=== PATIENT | male | born 1930 | race Caucasian/White ===

== ENCOUNTER 2016-05-19 06:53 | Emergency (ER) | payer MEDICARE, OTHER ==
[~2016-05-19] VITALS: Ht 175.3 cm; Wt 72.3 kg
[2016-05-19 06:54] VITALS: BP 124/50; PULSE 53; RESP 11; O2SAT 97
--- NOTE | 2016-05-19 06:56 | ED.REPORT ---
HPI-Stroke / CVA May 19, 2016 ED Provider: Dr Stallings Mr. Ravindra Cavanaugh is an 85-year-old gentleman with past medical history significant for Alzheimer's, Parkinson's, diabetes, and hypertension currently residing at [facility] since November last year who presents to the [facility] emergency department by EMS due to reports of one day history of malaise , confusion, and decreased level of consciousness. He is accompanied by his Lilian reports that he is normally active does not require ambulatory assistance is independent with food, urination and bowel movements. She also reports that he has had decreased verbal abilities for the last 7 years to Alzheimer's and Parkinson's. Lilian denies cough, vomiting, complaints of pain or diarrhea. Patient is unable to provide answers for questions. Nursing Notes Stated Complaint: RIGHT SIDE WEAKNESS Chief Complaint: Neuro Symptoms/ Deficits Nursing Notes Reviewed: Yes Allergies: Coded Allergies: No Known Allergies (Verified , 05/19/16) Uncoded Allergies: No Known Allergies (Allergy, Mild, 10/12/04) Scheduled Alfuzosin ER (Alfuzosin ER) 10 Mg Tab.er.24h 10 MG PO DAILY (Reported) Aspirin (Aspirin) 81 Mg Tablet 81 MG PO DAILY (Reported) Atenolol (Atenolol) 25 Mg Tablet 12.5 MG PO DAILY (Reported) Atorvastatin (Lipitor) 40 Mg Tablet 40 MG PO DAILY (Reported) Atropine 1% Ophthalmic Drops (Atropine 1% Ophthalmic Drops) 1 % Drops 1 DROP AFFECT_EYE QID (Reported) Donepezil (Donepezil) 10 Mg Tablet 10 MG PO HS (Reported) Insulin Glargine (Lantus U100 Insulin Vial) 100 Unit/Ml Vial 20 UNIT SUBQ QAM ( Reported) Memantine HCl (Memantine HCl) 10 Mg Tablet 10 MG PO DAILY (Reported) Scheduled PRN Sennosides (Senna) 8.6 Mg Tablet 8.6 MG PO BID PRN PRN For Constipation ( Reported) General Time Seen by Provider: 07:23 Transferred From: correction Chief Complaint Weakness, Confusion, Mental status change Right-sided (?) Time last known well Evening of 05/17/16, Roughly a day and a half ago on Thursday. Sudden in Onset?: Yes Progression Since Onset: Rapidly improving Review of Systems A comprehensive review of systems was conducted with the patient and found to be negative except as above in the History of Present Illness. Physical Exam General: Unable to assess due to decreased level on consciousness. HEENT: Normocephalic, atraumatic. External ears without defect. Pupils equal, round, and reactive to light and accommodation. Anicteric sclerae, moist conjunctivae, and no lid lag. Oropharynx free of erythema and cobble stoning with moist mucosa. Did not open eyes to commands her request. Would open eyes for painful stimuli. Neck: Supple with full range of motion. No jugular venous distension. No bruits. No lymphadenopathy or thyromegaly. Cardiovascular: Bradycardic rate and rhythm with no murmurs, rubs, or gallops appreciated Pulmonary: Clear to auscultation bilaterally with no crackles, wheezes, or rhonchi. Normal respiratory effort with no use of accessory muscles. Abdomen: Bowel tones present. Soft, nontender, nondistended. No hepatosplenomegaly or masses appreciated. Extremities: No clubbing, cyanosis, edema, or lymphadenopathy appreciated. Skin: Normal temperature, turgor, and texture; no rash, ulcers, or subcutaneous nodules appreciated. Neurological: Unable to assess due to decreased level on consciousness, however right side Parkinsonian stiffness of right upper extremity and tremor present but does not squeeze to commands. Does move intermittently to painful stimuli of upper and lower right side. Left upper extremity patient does squeeze to commands. Psychiatric: Unable to assess due to decreased level on consciousness. Initial Vital Signs Vital Signs (First) Date Time Temp Pulse Resp B/P Pulse Ox O2 Delivery O2 Flow Rate FiO2 05/19/16 06:54 37.5 53 11 124/50 97 Room Air Interpretation & Diagnostics Lab Results Interpretation Result Diagram: 05/19/16 0712 05/19/16 0712 Test 05/19/16 07:12 05/19/16 08:08 White Blood Count 8.1th/mm3 (3.8-10.1) Red Blood Count 3.78mil/mm3 (4.40-5.80) Hemoglobin 12.5g/dL (13.8-17.2) Hematocrit 37.1% (41.0-50.0) Mean Corpuscular Volume 98.1fL (81-100) Mean Corpuscular Hemoglobin 33.1pg (27.0-35.0) Mean Corpuscular Hemoglobin Concent 33.7% (32.0-37.0) Red Cell Distribution Width 12.6% (12.3-15.4) Platelet Count 183bil/L (150-400) Neutrophils (%) (Auto) 80.7% (40-74) Lymphocytes (%) (Auto) 11.6% (14-46) Monocytes (%) (Auto) 6.3% (4-12) Eosinophils (%) (Auto) 1.0% (0-5) Basophils (%) (Auto) 0.2% (0-3) Sodium Level 140mEq/L (134-144) Potassium Level 4.0mEq/L (3.5-5.2) Chloride Level 101mEq/L (97-108) Carbon Dioxide Level 26mmol/L (18-29) Blood Urea Nitrogen 25mg/dL (8-27) Creatinine 0.85mg/dL (0.76-1.27) Estimat Glomerular Filtration Rate 91mL/min (>59) Glucose Level 203mg/dL (60-99) Calcium Level 8.5mg/dL (8.5-10.1) Total Bilirubin 0.6mg/dL (0.0-1.2) Aspartate Amino Transf (AST/SGOT) 15U/L (0-50) Alanine Aminotransferase (ALT/SGPT) 19U/L (0-44) Alkaline Phosphatase 56U/L (25-160) Troponin T 0.010ug/L (0.0-0.011) Total Protein 5.4g/dL (6.4-8.4) Albumin 3.3g/dL (3.4-5.0) Hold Baron Top Tube Received (Received) Urine Color Yellow (YELLOW) Urine Appearance Hazy (CLEAR,HAZY) Urine pH 7.5 (5.0-8.0) Urine Specific [place] 1.010 (1.003-1.035) Urine Protein Negativemg/dL (NEG,TRACE) Urine Glucose (UA) Negativemg/dL (NEGATIVE) Urine Ketones Negativemg/dL (NEGATIVE) Urine Occult Blood Negative (NEGATIVE) Urine Nitrite Negative (NEGATIVE) Urine Bilirubin Negative (NEGATIVE) Urine Urobilinogen Normalmg/dL (NORMAL) Urine Leukocyte Esterase Negative (NEGATIVE) Urine RBC 0-2/hpf (0-2) Urine WBC 0-5/hpf (0-5) Urine Epithelial Cells Occasional/hpf (NONE-MOD) Urine Crystals None seen (NONE SEEN) Urine Bacteria Few/hpf (NONE-FEW) Urine Hyaline Casts None/lpf (NONE) Urine Granular Casts None seen (NONE SEEN) Urine Waxy Casts None seen (NONE SEEN) Urine Red Blood Cell Casts None seen (NONE SEEN) Urine White Blood Cell Casts None seen (NONE SEEN) Urine Mucus None seen (None Seen) Urine Trichomonas None seen (NONE SEEN) Urine Yeast None (NONE SEEN) Urinalysis Comment None Urine Culture Reflexed Not indicated Re-Eval/Medical Decision Med Decision/Clinical Course Mr. Ravindra Cavanaugh is an 85-year-old gentleman with past medical history significant for Alzheimer's, Parkinson's, diabetes, and hypertension currently residing at [facility] since November last year who presents to the [facility] emergency department by EMS due to reports of one day history of malaise , confusion, and decreased level of consciousness and leaning to the right side in a chair and unable to ambulate without complete assistance. He is accompanied by his Lilian reports that he is normally active does not require ambulatory assistance is independent with food, urination and bowel movements. She also reports that he has had decreased verbal abilities for the last 7 years to Alzheimer's and Parkinson's. Lilian denies cough, vomiting, complaints of pain or diarrhea. Patient is unable to provide answers for questions. Differential diagnosis for confusion and altered mental status in elderly includes: Stroke (new or exacerbation of old stroke), sepsis, influenza, urinary tract infection, deterioration due to advanced age. Rule out stroke and infectious. CT brain without contrast showed no bleed with probable old stroke on the right pleural region. Chest x-ray unremarkable. EKG normal., troponins negative., CBC and CMP did not reveal any acute infectious markers with a slight left shift noted to 80%, urine clean no electrolyte abnormalities with elevated outside blood glucose of 211. In the absence of obvious etiology for altered mental status and confusion below patient's baseline we will proceed with CT abdomen and pelvis with contrast due to patient 's history of constipation inconclusive subjective abdominal pain and altered mental status. CT abdomen and pelvis with contrast showed large amounts of stool. Patient's mental status has drastically improved and according to is much more normal with only slight decrease in ambulation ability. According to patient was prescribed "a strong laxative" 10 days ago by his primary care physician and was not given. Mr. Ravindra Cavanaugh would benefit from fleets enema and oral mag citrate at [facility] can provide full care nursing. Patient Discharge & Departure Impression: Primary Impression: Altered mental status Additional Impressions: Weakness generalized Obstipation Disposition: Transfer, Acute Care Facility Discharge Condition All VS Reviewed: Yes Condition: Stable Patient Instructions: Constipation (ED) Additional Instructions: During your visit to [facility] Emergency Department we obtained blood work for infectious markers, hemoglobin levels, and electrolytes, influenza screen, urine sample and cardiac troponins. We obtained high resolution imaging of your brain, abdomen and pelvis as well as a chest x-ray. All your lab values were within normal limits and your imaging showed no acute processes or abnormalities. Do not hesitate to call emergency services or your primary care physician if you experience any of the following. -High unrelenting fevers. -Uncontrolled vomiting. -Severe hypertension. -Syncope or loss of consciousness. -Chest pain or severe shortness of breath. Follow up with your primary care physician in 1-2 weeks time following your emergency department visit for medication checks and general well-being. We highly recommend receiving a fleets enema and mag citrate orally due to patient's obstipation. Referrals: Brian Puri MD (Family) Attending Statement Patient seen and examined. At this point no alternative explanation can be found for the altered mental status over the last 3 days aside from severe constipation/obstipation. [facility] is able to help with enemas as well as aggressive bowel cleanse the be returned to [facility] with suggestions for this will need further evaluation if he continues to worsen copies to: Brian Puri MD; Nikki Kerns MD, Shawna L MD May 19, 2016 06:56 RADHA ALLISON DO May 19, 2016 07:56
[2016-05-19] MEDS ORDERED: 0.9% Sodium Chloride 1,000 ML IV ONE (07:21)
[2016-05-19] MEDS ORDERED: DONE10TA42 PO (07:22)
[2016-05-19] MEDS ORDERED: INSU100V7 SUBQ (07:22)
[2016-05-19] MEDS ORDERED: SENN-133 PO (07:22)
[2016-05-19] MEDS ORDERED: ATEN25TA PO (07:22)
[2016-05-19] MEDS ORDERED: ALFU10TA11 PO (07:22)
[2016-05-19] MEDS ORDERED: MEMA10TA20 PO (07:22)
[2016-05-19] MEDS ORDERED: ATRO2DRO4 AFFECT_EYE (07:22)
[2016-05-19] MEDS ORDERED: LIP40 PO (07:22)
[2016-05-19] MEDS ORDERED: ASPI-973 PO (07:22)
[2016-05-19 07:50] LABS: BASOPHILS % (AUTO) 0.2 % (0-3); MONOCYTES % (AUTO) 6.3 % (4-12); Mean Corpuscular Hemoglobin 33.1 pg (27.0-35.0); Mean Corpuscular Volume 98.1 fL (81-100); NEUTROPHILS % (AUTO) 80.7 % (40-74); Platelet Count 183 bil/L (150-400)
[2016-05-19] MEDS ORDERED: Lidocaine 2% 6mL Topical Jelly ONE (07:59)
--- NOTE | 2016-05-19 08:01 | DRSVH ---
PROCEDURE: CT BRAIN WITHOUT CONTRAST ([id number]) INDICATIONS: Stroke TECHNIQUE: Noncontrast 4.5 mm thick angled axial sections acquired from the foramen magnum to the vertex, with c oronal reformats. COMPARISON: None. FINDINGS: Image quality: Excellent. CSF spaces: Basal cisterns are patent. No extra-axial fluid collections. The ventricles are symmet abimbola in size and shape. Brain: No intracranial bleeds or masses. There is moderate cerebral volume loss for age, with resul tant ventricular and sulcal prominence. There are moderate periventricular and deep white matter chr onic small vessel ischemic changes. There is intracranial internal carotid artery atherosclerosis. Skull and face: Calvarium and visualized facial bones appear intact, without suspicious lesions. Sinuses: Bilateral maxillary sinus mucosal thickening. Mastoids are clear. IMPRESSION: 1. No acute intracranial abnormalities. 2. Cerebral volume loss and chronic microvascular ischemic changes. 3. Bilateral maxillary sinus disease. Dictated by: Veronica Koenig M.D. on 05/19/2016 at 7:57 Approved by: Veronica Koenig M.D. on 05/19/2016 at 7:59
[2016-05-19 08:04] LABS: TROPONIN T 0.01 ug/L (0.0-0.011)
[2016-05-19 08:12] VITALS: BP 135/56; PULSE 51; RESP 14; O2SAT 97
[2016-05-19 08:32] LABS: APPEARANCE,URINE HAZY (CLEAR,HAZY); COLOR,URINE YELLOW (YELLOW); OCCULT BLOOD,URINE NEGATIVE (NEGATIVE); PH,URINE 7.5 (5.0-8.0); UROBILINOGEN,URINE NORMAL (NORMAL)
--- NOTE | 2016-05-19 10:35 | DRSVH ---
PROCEDURE: CT ABDOMEN AND PELVIS WITH CONTRAST ([id number]) INDICATIONS: Abdominal pain and altered mental status TECHNIQUE: After the administration of oral and intravenous contrast, 5 mm thick sections acquired from the diap hragms to the symphysis. 5 mm thick coronal and sagittal reformats were performed. For radiation do se reduction, the following was used: automated exposure control, adjustment of mA and/or kV accordi ng to patient size. COMPARISON: None. FINDINGS: Image quality: Excellent. ABDOMEN: Lung bases: There is mild dependent atelectasis bilaterally. A small right pleural effusion is pres ent. Within the right lung base, there is a small 8mm hyperdense focus of indeterminate etiology. T he heart is enlarged with prominent left atrial enlargement. There is a small pericardial effusion. Solid organs: Liver and spleen are normal in size and enhancement. Gallbladder appears within karma l limits. Biliary system is non-dilated. Pancreas enhances normally. There is thickening of the ad renal glands without a nodule. Kidneys demonstrate no hydronephrosis. Peritoneum and bowel: Stomach, small bowel, and colon loops are normal in caliber and wall thickness . There is mild colonic stool distention. No free fluid or air. Nodes and vessels: No retroperitoneal or mesenteric adenopathy. Aorta and inferior vena cava are no rmal in caliber. Miscellaneous: No ventral hernias. PELVIS: Genitourinary: There is mild bladder wall thickening. Miscellaneous: No inguinal hernias or adenopathy. Bones: No suspicious bony lesions. No vertebral body compression fractures. IMPRESSION: 1. Mild bladder wall thickening suggesting a mild cystitis. Recommend correlation with urinalysis. 2. Small pericardial effusion. 3. Small 8mm hyperdensity in the right lung base suggestive of a foreign body possibly from prior as piration. 4. Small right pleural effusion and mild dependent atelectasis bilaterally. 5. Mild colonic stool distention suggestive of constipation. No evidence of bowel obstruction. Dictated by: Tae Corona M.D. on 05/19/2016 at 10:12 Approved by: Tae Corona M.D. on 05/19/2016 at 10:33
[2016-05-19 11:57] VITALS: BP 110/60; PULSE 71; RESP 17; O2SAT 95
== END 2016-05-19 11:57 | disposition home or self-care (01) ==
LOC: SED 06:53
DX: R41.82 Altered mental status, unspecified (principal); R53.1 Weakness; K59.09 Other constipation; G30.9 Alzheimer's disease, unspecified; G20 Parkinson's disease; E11.9 Type 2 diabetes mellitus without complications; I10 Essential (primary) hypertension; Z79.82 Long term (current) use of aspirin; Z79.4 Long term (current) use of insulin
CPT/HCPCS: 36415; 70450; 74177; 80053; 81000; 84484; 85025; 87804; 93005; 96360; 99285; J7030; Q9967

== ENCOUNTER 2016-08-23 06:37 | Emergency (ER) | payer MEDICARE, OTHER ==
[~2016-08-23 06:37] MED LIST: ALFU10TA11 PO; ASPI-973 PO; ATEN25TA PO; ATRO2DRO4 AFFECT_EYE; DONE10TA42 PO; INSU100V7 SUBQ; LIP40 PO; MEMA10TA20 PO; SENN-133 PO
[2016-08-23 06:43] VITALS: PULSE 50; RESP 14; O2SAT 98
--- NOTE | 2016-08-23 06:59 | ED.REPORT ---
HPI-Trauma Minor / Fall Date of Service August 23, 2016 ED Provider: Kei Brice MD Patient is an 86 year old male with a history of Alzheimer's, Parkinson's and insulin dependent diabetes with neuropathy who presents to the ED due to a fall this morning. Per the patient's daughter, the patient was found on the bathroom floor with a laceration to his head. He did not report any evidence of hip or leg pain. Per the patient's daughter, the patient did not have any problems walking after the fall. The patient has not started any new medications. Nursing Notes Stated Complaint: FALL Chief Complaint: Multiple Trauma/Fall Nursing Notes Reviewed: Yes ([employer], meds not reconciled) Allergies: Coded Allergies: No Known Allergies (Verified , 05/19/16) Uncoded Allergies: No Known Allergies (Allergy, Mild, 10/12/04) Scheduled Alfuzosin ER (Alfuzosin ER) 10 Mg Tab.er.24h 10 MG PO DAILY Aspirin (Aspirin) 81 Mg Tablet 81 MG PO DAILY Atenolol (Atenolol) 25 Mg Tablet 12.5 MG PO DAILY Atorvastatin (Lipitor) 40 Mg Tablet 40 MG PO DAILY Atropine 1% Ophthalmic Drops (Atropine 1% Ophthalmic Drops) 1 % Drops 1 DROP AFFECT_EYE QID Donepezil (Donepezil) 10 Mg Tablet 10 MG PO HS Insulin Glargine (Lantus U100 Insulin Vial) 100 Unit/Ml Vial 20 UNIT SUBQ QAM Memantine HCl (Memantine HCl) 10 Mg Tablet 10 MG PO DAILY Scheduled PRN Sennosides (Senna) 8.6 Mg Tablet 8.6 MG PO BID PRN PRN For Constipation General Time Seen by MD: 06:55 Chief Complaint Fall Hx Obtained From: Patient, Spouse Arrived By: Walk-in Onset Occurred: 5 - 8 hours ago Caused by: Fall on ground Location: Head Context: Immunizations All up to date Recent Healthcare: No recent hospitalization, Recent doctor visit Past Medical History Past Medical History Alzheimer's Insulin dependent diabetes with neuropathy Hypertension History of chronic renal insufficiency History of Parkinson's History of hypoparathyroidism due to vitamin D deficiency History of BPH with urinary retention Smoking History Unknown if Ever Smoker Social History Lives at [facility] Other Social History: Good social support, , Lives in long term Ambulatory Status Independent Review of Systems Review of Systems Note: ROS is limited due to patient's condition Respiratory: Denies: Non-productive cough, Shortness of breath Musculoskeletal: Denies: Extremity pain Neurologic: Denies: Problem walking Complete sys rev & neg: except as marked. Physical Exam Physical Exam Notes: no other evidence of injury Initial Vital Signs Vital Signs (First) Date Time Temp Pulse Resp B/P Pulse Ox O2 Delivery O2 Flow Rate FiO2 08/23/16 06:43 36.4 50 14 98 Room Air 08/23/16 08:04 142/64 Initial VS: Reviewed, Unavailable (Incomplete vitals on chart, ordered) General/Constitutional: Awake, No acute distress demented, unable to give history Neck: Atraumatic, Supple Head / Eyes: Normocephalic, PERRL, EOMI 2.5 cm irregular laceration across right worship Respiratory / Chest: Atraumatic, No respiratory distress Skin: No rash, Warm, Dry Interpretation & Diagnostics CT Head Interpretation IMPRESSION: 1. No acute intracranial findings. 2. Right frontal laceration and subgaleal hematoma without underlying calvarial abnormality. 3. Findings likely associated with microvascular ischemic changes. Dictated by: Dominique Ramirez M.D. on 08/23/2016 at 7:47 Approved by: Dominique Ramirez M.D. on 08/23/2016 at 7:49 Interpretation / Wet Read by: Interpret - Radiologist Procedures Laceration Management Time: 08:09 Procedure Performed by: ED physician Consent / Setup / Site Prep: Consent from patient, Consent from spouse, Hand hygiene observed Wound Length: 2 cm Local Anesthesia: Other (Bupivacaine with epi) Repair Skin: Sergio (5 sergio) Post-Procedure / Complications: No complications, Condition improved, Tolerated procedure well, Patient stable Re-Eval/Medical Decision Med Decision/Clinical Course This is a 72-year-old male with significant dementia had a fall at the long term today and hit his head. He was sent in for further evaluation. He is acting at baseline, the patient cannot provide any useful history-is no history of features from the nursing facility the patient or the family regarding any concern for antecedent symptoms, I think a mechanical fall. With no recent acute events, medication changes or other issues. The patient's not anticoagulated. On exam he does have a scalp laceration of the right temporal region. There are no other expressible signs of trauma, no signs of clinical hip injury or extremity injury. Contrast head CT was obtained and was negative. The wound was anesthetized with bupivacaine with epinephrine, irrigated, cleaned, and repaired with sergio. The [facility], wound care instructions. Family is content, patient's discharged in stable condition. Source of Hx: Old records Re-Evaluation/Progress #1: Time of Eval: 07:38 Re-Evaluation/Progress Note: Discussed plan for laceration management. The patient and patient's daughter understand and agree to the plan. All questions were addressed. Re-Evaluation/Progress #2: Time of Eval: 08:11 Re-Evaluation/Progress Note: Discussed plan for discharge. The patient and patient's daughter understand the plan for discharge. All questions were addressed. Counseled Regarding: Diagnosis, Lab results, Need for follow-up, When/why to return to ED Discharge & Departure Impression: Primary Impression: Scalp laceration Encounter type: initial encounter Qualified Code: S01.01XA - Laceration without foreign body of scalp, initial encounter Additional Impression: Fall from ground level Disposition: Home Discharge Condition All VS Reviewed: Yes Condition: Stable Additional Instructions: 1. The Brain CT scan was normal with no injury to the brain or skull. 2. The scalp laceration was cleaned and repaired with 5 sergio, these will need to be removed in approximately 5-7 days. He can be removed at the facility , the doctor's office, or if needed return to the emergency department for removal. 3. Apply a small amount of topical antibiotic such as bacitracin daily. 4. Okay to shower or get wet, but do not soak 5. Monitor for any signs of infection: Redness, increasing swelling/pain, drainage, or fever-if these occur return directly to the emergency department. 6. Continue current medications and care. Referrals: Nikki Kerns MD (PCP) Evelinibaileen Attestation Portions of this note were transcribed by Courtney Brown. I, Dr. Brice personally performed the history, physical exam and medical decision-making; I reviewed and confirmed the accuracy of the information in the transcribed note. Signed by: Sukhdev Jacobsen, 08/23/16 and 0824. copies to: Nikki Kerns MD, Matthew F MD August 23, 2016 06:59 Radha Brown August 23, 2016 07:01
--- NOTE | 2016-08-23 07:51 | DRSVH ---
PROCEDURE: CT BRAIN WITHOUT CONTRAST ([id number]) INDICATIONS: Fall, head injury TECHNIQUE: Noncontrast 4.5 mm thick angled axial sections acquired from the foramen magnum to the vertex, with c oronal reformats. COMPARISON: None. FINDINGS: Image quality: Excellent. CSF spaces: Basal cisterns are patent. No extra-axial fluid collections. The ventricles are symmet abimbola in size and shape. Brain: No intracranial bleeds or masses. There is cerebral volume loss for age, with resultant vent ricular and sulcal prominence. There are periventricular and deep white matter chronic small vessel ischemic changes. There is intracranial internal carotid artery atherosclerosis. Skull and face: A small laceration and subgaleal hematoma overlies the right frontal bone. Calvarium and visualized facial bones appear intact, without suspicious lesions. Sinuses: Visualized sinuses and mastoids are clear. IMPRESSION: 1. No acute intracranial findings. 2. Right frontal laceration and subgaleal hematoma without underlying calvarial abnormality. 3. Findings likely associated with microvascular ischemic changes. Dictated by: Dominique Ramirez M.D. on 08/23/2016 at 7:47 Approved by: Dominique Ramirez M.D. on 08/23/2016 at 7:49
[2016-08-23 08:04] VITALS: BP_SYST 105; BP_SYST 142; BP_DIAS 52; BP_DIAS 64; PULSE 48; PULSE 84; RESP 16; O2SAT 98
== END 2016-08-23 08:34 | disposition home or self-care (01) ==
LOC: SED 06:37
DX: S01.01XA Laceration without foreign body of scalp, initial encounter (principal); W17.89XA Other fall from one level to another, initial encounter; Y93.89 Activity, other specified; Y92.121 Bathroom in nursing home as the place of occurrence of the external cause; Y99.8 Other external cause status; G30.9 Alzheimer's disease, unspecified; G20 Parkinson's disease; E11.9 Type 2 diabetes mellitus without complications; I12.9 Hypertensive chronic kidney disease with stage 1 through stage 4 chronic kidney disease, or unspecified chronic kidney disease; N18.9 Chronic kidney disease, unspecified; E20.9 Hypoparathyroidism, unspecified; Z79.4 Long term (current) use of insulin; Z79.82 Long term (current) use of aspirin